=== PATIENT | male | born 1950 | race Caucasian/White ===

== ENCOUNTER 2024-01-12 17:27 | Emergency (ER) | payer MEDICARE, SELFPAY ==
--- NOTE | ~2024-01-12 | XR_ITS ---
EXAMINATION: XR KNEE, RIGHT CLINICAL INFORMATION: Patient COMPARISON: None available. TECHNIQUE: Four views of the right knee. FINDINGS: Mild tricompartmental osteoarthritis. No acute fracture or dislocation. Soft tissue structures within normal limits. No joint effusion. Vascular calcifications. XR/XR knee RT 4V IMPRESSION: Osteoarthritis. No acute fracture or dislocation.
--- NOTE | ~2024-01-12 | XR_ITS ---
EXAMINATION: XR HIP, RIGHT CLINICAL INFORMATION: Pain COMPARISON: None available. TECHNIQUE: Two views of the right hip. 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 No component migration. Soft tissues are normal. XR/XR hip RT w PEL1V IMPRESSION: Normal right hip.
--- NOTE | ~2024-01-12 | CT_ITS ---
EXAMINATION: CT HEAD WITHOUT CONTRAST CLINICAL INFORMATION: Fall COMPARISON: None. TECHNIQUE: Multidetector volumetric imaging of the head was performed without intravenous contrast material. This CT examination was performed using dose optimization techniques as appropriate, variously including the following: *Automated exposure control *Adjustment of mA and/or kV according to patient size (this includes techniques or standardized protocols for targeted exams where dose is matched to indication/reason for exam; i.e. extremities or head) *Use of iterative reconstruction technique Dose: 739 mGy-cm FINDINGS: There is no evidence of acute intracranial hemorrhage or territorial infarction. No abnormal mass-effect or midline shift is seen. [place] to white matter differentiation is well preserved. No extra axial fluid collections. There is commensurate enlargement of the ventricles and extraaxial CSF spaces consistent with mild volume loss. A few foci of hypoattenuation in the subcortical and periventricular white matter are most consistent with chronic microangiopathic changes. Calcific atherosclerosis is present within the cavernous segments of the internal carotid arteries. The soft tissues and osseous structures are normal. Mild mucosal thickening in the left maxillary sinus. Sinuses and mastoid air cells are otherwise clear. Cerumen is present in the right external auditory canal. CT/CT head/brain wo IV con IMPRESSION: No acute intracranial pathology.
--- NOTE | ~2024-01-12 | XR_ITS ---
EXAMINATION: XR CHEST CLINICAL INFORMATION: Hypoxia COMPARISON: None available. TECHNIQUE: Frontal view of the chest was obtained. FINDINGS: No significant abnormality is noted involving the heart, lungs, mediastinum, bony thorax or soft tissues. XR/XR chest 1V IMPRESSION: Unremarkable examination.
--- NOTE | ~2024-01-12 | US_ITS ---
EXAMINATION: US VENOUS ULTRASOUND WITH DOPPLER LOWER EXTREMITY, RIGHT CLINICAL INFORMATION: Pain COMPARISON: None available. TECHNIQUE: Ultrasound of the deep veins is performed from the hip to the calf with compression sonography and color and pulse Doppler assessment. Spectral analysis with color-flow imaging is performed. FINDINGS: There is normal venous compression and respiratory variation and augmented flow. The visualized common femoral vein, superficial femoral vein, profunda femoral vein, popliteal vein, and the trifurcation region shows no evidence of deep venous thrombosis. There is no significant popliteal fossa cyst. If the patient's symptoms persist, followup ultrasound in 5 days 7 days might be of value to exclude proximal propagation from a non-visualized calf vein. US/US venous duplex LE RT IMPRESSION: No DVT demonstrated in the right lower extremity.
[2024-01-12 17:32] VITALS: BP 138/70; PULSE 84; O2SAT 96
[2024-01-12 17:38] VITALS: BP 120/53; PULSE 83; RESP 18; TEMP 36.9; O2SAT 94; BMI 29.7
--- NOTE | 2024-01-12 17:43 | ECG_ITS ---
Test Reason : FALL Blood Pressure : / mmHG Vent. Rate : 083 BPM Atrial Rate : 083 BPM P-R Int : 152 ms QRS Dur : 086 ms QT Int : 390 ms P-R-T Axes : 022 -50 072 degrees QTc Int : 458 ms Artifact in tracing Sinus rhythm with occasional Premature ventricular complexes and Premature atrial complexes Left axis deviation Low voltage QRS Inferior infarct , age undetermined Cannot rule out Anteroseptal infarct , age undetermined Abnormal ECG No previous ECGs available Referred By: Generic ED Physician Electronically Signed By:DONTE CROOKS
[2024-01-12 18:23] VITALS: BP 118/65; PULSE 79; RESP 22; O2SAT 95
[2024-01-12 18:28] LABS: MANUAL DIFF FLAG NO
[2024-01-12 18:30] LABS: Basophils Percent Auto 0.4 % (0-2); Eosinophils Absolute Auto 0.1 X10*3/uL (0.0-0.4); Eosinophils Percent Auto 1.7 % (0-4); Hematocrit 37.5 % (42.0-52.0); Imm Gran Abs Auto 0.02 X10*3/uL (0.00-0.03); Imm Gran Pct Auto 0.4 % (0.0-0.4); Lymphocytes Absolute Auto 0.7 X10*3/uL (1.2-4.9); Lymphocytes Percent Auto 13.2 % (20-40); Mean Corpuscular HGB Conc 34.7 g/dl (31.0-36.0); Mean Corpuscular Hemoglobin 35.3 pg (27.0-33.0); Mean Corpuscular Volume 101.9 fL (80.0-98.0); Mean Platelet Volume 10.1 fL (9.4-12.4); Monocytes Percent Auto 19.8 % (2-11); Neutrophils Absolute Auto 3.3 x10*3/uL (2.0-8.3); Neutrophils Percent Auto 64.5 % (45-73); Platelet Count 159 X10*3/uL (160-400); Red Blood Count 3.68 X10*6/uL (4.60-5.80); Red Cell Distribution Width 13.4 % (11.0-16.0); White Blood Count 5.2 X10*3/uL (4.8-10.8)
[2024-01-12 18:38] LABS: INTERNATIONAL NORM RATIO 0.9 (0.9-1.1); Prothrombin Time 11.5 SEC (11.1-13.3)
[2024-01-12 18:46] LABS: Alanine Aminotransferase 41 U/L (0-40); Albumin Level 3.2 g/dL (3.5-5.0); Alkaline Phosphatase 101 U/L (39-117); Anion Gap 13 (12-20); Aspartate Amino Transferase 56 U/L (5-37); Bilirubin Total 0.5 mg/dL (0.0-1.0); Blood Urea Nitrogen 16 mg/dL (9-16); Calcium 10.4 mg/dL (8.4-10.2); Carbon Dioxide 33 mmol/L (22-29); Chloride 100 mmol/L (96-108); Creatinine Clr Calc Pharmacy 102.2; Estimated Glomerular Filt Rate > 60; Glucose Random 159 mg/dL (60-115); Sodium 143 mmol/L (135-145); Total Protein 6.4 g/dL (6.5-8.0)
[2024-01-12 19:27] LABS: Appearance Urine Cloudy; Color Urine Dark Yellow; Glucose Urine UA Negative (Negative); Leukocyte Esterase Urine Negative (Negative); Nitrite Urine Negative (Negative); Specific Gravity - Urine 1.025 (1.005-1.025); UMIC TRIGGER UACC YES; Urine Blood Large (3+) (Negative); Urine Ketones Trace mg/dL (Negative); Urine Protein Trace mg/dL (Neg-Trace)
[2024-01-12 19:34] LABS: Bacteria Urine None Seen (None Seen); Calcium Oxalate Crystals Urine Present; WBC Urine 0-5 /HPF (0-5)
[2024-01-12] MEDS: Potassium Chloride ER 20 MEQ TAB.ER.PRT 40 MEQ PO (19:48)
--- NOTE | 2024-01-12 20:06 | ED_ITS ---
HPI - General Adult General Chief complaint: Fall Stated complaint: SN[facility], fall, no headstrike, hip/leg pain Time Seen by Provider: 01/12/24 19:08 Source: patient and RN notes reviewed Mode of arrival: EMS Limitations: no limitations History of Present Illness ED Provider: Shaji PAIGE narrative: 73-year-old male presents for evaluation of right leg pain. Patient is presenting from [place] after a fall. He suffered a fall this morning. He states that his right leg has been bothering him which led to his fall today. He reports pain from the knee down. Denies any hip pain He states the pain has been bothering him for about 2 weeks now. He states when he fell he did not hit his head or lose consciousness Patient is denying any chest pain, shortness of breath prior to his fall. Denies any dizziness, headaches He is on aspirin but not anticoagulation Apparently the patient was found to be satting 90% on room air after he fell. Related Data Allergies Allergy/AdvReac Type Severity Reaction Status Date / Time Seasonal Allergies Allergy Dry Eye Verified 01/12/24 17:43 Review of Systems 2 Constitutional: Constitutional: Denies body ache(s), Denies chills, Denies fever(s) and Denies headache(s) Eyes: Eyes: Denies blurry vision ENT: Denies dysphagia, Denies vertigo, Denies dizziness and Denies headache(s) Cardiovascular: Cardiovascular: Denies chest pain and Denies dyspnea Respiratory: Respiratory: Denies cough and Denies dyspnea Gastrointestinal: Gastrointestinal: Denies abdominal pain, Denies dysphagia and Denies vomiting Musculoskeletal: Musculoskeletal: Denies back pain Integumentary/Breasts: Skin/Breast: Denies rash Neurologic: Denies vertigo, Denies dizziness and Denies headache(s) Psychiatric: Psychiatric: Denies anxiety PMFSH Social History Social History Smoked in Last 30 Days: Yes Use of substances other than those prescribed or required for medical reasons: No Advance Directives: No Advance Directives Information Provided: No Do you have a plan to hurt others: No Plan Physical Exam ED Vital Signs: Vital Signs - 24 hr 01/12/24 17:38 01/12/24 18:23 01/12/24 21:46 Temperature 98.5 F 98.6 F Pulse Rate 83 79 81 Respiratory Rate 18 22 H 17 Blood Pressure 120/53 L 118/65 123/56 L Pulse Oximetry 94 95 92 Oxygen Delivery Method Room Air Room Air Room Air BMI result Body Mass Index 29.7 Const General: healthy appearing, comfortable, no acute distress, alert and awake Nutritional Appearance: well nourished Orientation/consciousness: patient oriented x3 HENMT Head: Yes normocephalic and Yes atraumatic Throat: Yes posterior oropharynx normal Eyes Eyelids: Yes eyelids normal Conjunctivae: conjunctivae normal Sclerae: sclerae normal Corneas: corneas normal Pupils: Equal, round and reactive pupils present EOM: EOMs intact bilaterally Neck Neck: Yes full ROM Resp Effort & Inspection: normal respiratory effort, able to speak in complete sentences and not labored Cardio Rate: regular rate Rhythm: regular rhythm GI Inspection: No distended Palpation (GI): Soft to palpation, not firm, nontender, no guarding and not rigid Skin General skin exam: elasticity normal Neuro General: patient oriented x3 Cranial nerves: Yes CN's II-XII intact bilaterally, Yes Equal, round and reactive pupils present and Yes Bilaterally intact EOM present Cognition (Neuro): normal cognition Extrem Other: Moving all extremities well without any obvious deformities. Patient does have some tenderness to the right medial thigh and posterior knee. No obvious deformity. Course Reevaluation(s) Reevaluation #1: Patient's workup is significant for mild tricompartmental osteoarthritis of the right knee. No evidence of traumatic injuries, his chest x-ray showed no focal infiltrates or pleural effusions. The patient has not been hypoxic in the ER. He is stable for discharge back to [place] Time: 23:03 Medications Administered Discontinued Medications Generic Name Dose Route Start Last Admin Trade Name Maxq PRN Reason Stop Dose Admin Potassium Chloride 40 meq 01/12/24 19:23 01/12/24 19:48 Potassium Chloride Er 20 Meq Tab.Er.Prt PO 01/12/24 19:24 40 meq ONCE ONE Administration Medical Decision Making Medical Decision Making [facility] Narrative: 73-year-old male presents for evaluation after a fall. He denies any back pain, has no spinal tenderness on exam. He states he has been having issues with his right leg for 2 weeks now. Plan for x-ray of the right hip and right knee, get an ultrasound to rule out DVT. There are no objective findings on exam. Given the fall we will get a CT scan of the brain. The patient's lungs are clear to auscultation, denies any shortness of breath or chest pain but given the reported hypoxia to 90% on room air a chest x-ray was ordered with one view. The patient is pretty adamant that this was a mechanical fall and there was no loss of consciousness. An EKG was ordered regardless Differential Diagnosis Differential Diagnoses: The differential diagnosis associated with the presentation includes Mechanical fall Syncope DVT Arthritis Leg fracture Contusion Weakness Intracranial hemorrhage Lab Data MDM Lab Attestation statement: I reviewed the patient's lab results. The patient has no leukocytosis. Does have a mild anemia, unclear baseline as we do not have any previous labs. This is a macrocytic anemia. His platelet count is essentially normal at 159 K. there is no significant left shift. Chemistries are significant for a normal sodium, a slight hypokalemia at 3.0. Renal function within normal limits. His glucose is elevated to 159. There is no evidence of DKA as the patient's, Sexually slightly elevated as opposed to decreased. Very mild transaminitis of unclear etiology 01/12/24 18:22 01/12/24 18:22 Labs: Lab Results 01/12/24 01/12/24 Range/Units 18:22 19:17 WBC 5.2 (4.8-10.8) X10*3/uL RBC 3.68 L (4.60-5.80) X10*6/uL Hgb 13.0 L (14.0-18.0) g/dl Hct 37.5 L (42.0-52.0) % MCV 101.9 H (80.0-98.0) fL MCH 35.3 H (27.0-33.0) pg MCHC 34.7 (31.0-36.0) g/dl RDW 13.4 (11.0-16.0) % Plt Count 159 L (160-400) X10*3/uL MPV 10.1 (9.4-12.4) fL Immature Gran % (Auto) 0.4 (0.0-0.4) % Neut % (Auto) 64.5 (45-73) % Lymph % (Auto) 13.2 L (20-40) % Shannon % (Auto) 19.8 H (2-11) % Eos % (Auto) 1.7 (0-4) % Baso % (Auto) 0.4 (0-2) % Lymph # (Auto) 0.7 L (1.2-4.9) X10*3/uL Shannon # (Auto) 1.0 (0.1-1.2) X10*3/uL Eos # (Auto) 0.1 (0.0-0.4) X10*3/uL Baso # (Auto) 0.0 (0.0-0.2) X10*3/uL Abs Immat Gran (auto) 0.02 (0.00-0.03) X10*3/uL Absolute Neuts (auto) 3.3 (2.0-8.3) x10*3/uL Absolute Nucleated RBC 0.000 (0.0-0.012) X10*3/uL Nucleated RBC % (auto) 0.0 (0.0-0.2) /100WBC PT 11.5 (11.1-13.3) SEC INR 0.9 (0.9-1.1) Sodium 143 (135-145) mmol/L Potassium 3.0 L (3.3-5.1) mmol/L Chloride 100 (96-108) mmol/L Carbon Dioxide 33 H (22-29) mmol/L Anion Gap 13 (12-20) BUN 16 (9-16) mg/dL Creatinine 0.74 (0.5-1.4) mg/dL Estim Creat Clear Calc 102.2 Estimated GFR > 60 Random Glucose 159 H (60-115) mg/dL Calcium 10.4 H (8.4-10.2) mg/dL Total Bilirubin 0.5 (0.0-1.0) mg/dL AST 56 H (5-37) U/L ALT 41 H (0-40) U/L Alkaline Phosphatase 101 (39-117) U/L Total Protein 6.4 L (6.5-8.0) g/dL Albumin 3.2 L (3.5-5.0) g/dL Urine Color Dark Yellow Urine Appearance Cloudy Urine pH 6.0 (5.0-9.0) Ur Specific [place] 1.025 (1.005-1.025) Urine Protein Trace (Neg-Trace) mg/dL Urine Glucose (UA) Negative (Negative) mg/dL Urine Ketones Trace (Negative) mg/dL Urine Blood Large (3+) H (Negative) Urine Nitrite Negative (Negative) Ur Leukocyte Esterase Negative (Negative) Urine RBC 6-10 H (0-2) /HPF Urine WBC 0-5 (0-5) /HPF Ur Squamous Epith Cells 3-5 (0-2) /HPF Calcium Oxalate Crystal Present Urine Bacteria None Seen (None Seen) Hyaline Casts 3-5 (0-2) /LPF Independent Interpretation I performed an independent interpretation of an: EKG (Sinus rhythm with a rate of 83 beats minute. There is a PVC noted. No ST segment elevation [place]) Radiology Impression Discussion of test interpretation with radiology: I have reviewed the radiologist's reading. Radiologist Impression: XR/XR knee RT 4V IMPRESSION: Osteoarthritis. No acute fracture or dislocation. XR/XR hip RT w PEL1V IMPRESSION: Normal right hip. US/US venous duplex LE RT IMPRESSION: No DVT demonstrated in the right lower extremity. CT/CT head/brain wo IV con IMPRESSION: No acute intracranial pathology. Discharge Plan Discharge Clinical Impression: Fall, Leg pain, right, Acute hypokalemia Patient Disposition: Xfer [facility] Transfer Details: [facility] Instructions: Fall Prevention for Older Adults (ED), Hypokalemia (ED) Additional Instructions: Your workup in the ER today was reassuring. Your potassium was slightly low and this was repleted with oral supplementation. Follow-up with your primary doctor next week to have repeat labs. Your x-rays showed no evidence of fracture but you do have arthritis of your right knee. Your ultrasound showed no evidence of blood clots. Chest x-ray was clear. Brain CT showed no evidence of traumatic injury You may use Tylenol or ibuprofen as needed for pain Print Language: [place] Citizen
[2024-01-12 21:46] VITALS: BP 123/56; PULSE 81; RESP 17; TEMP 37; O2SAT 92
--- NOTE | 2024-01-12 23:36 | PC.NURSE ---
Nurse to nurse report called to Tristan Humphreys, spoke to SHAYY Hernadez. Patient to be transported to facility by ambulance.
[2024-01-13 01:09] VITALS: BP 113/57; PULSE 78; RESP 20; TEMP 36.6; O2SAT 92
[2024-01-13 02:58] VITALS: BP 105/61; PULSE 71; RESP 16; TEMP 36.7; O2SAT 94
[2024-01-13 03:00] VITALS: BP 105/61; PULSE 71; RESP 16; TEMP 36.7; O2SAT 94
== END 2024-01-13 03:01 ==
PROVIDERS: Emergency Provider Emergency Medicine
DX: M79.604 Pain in right leg (principal); Z91.81 History of falling; E87.6 Hypokalemia; R09.02 Hypoxemia; M17.11 Unilateral primary osteoarthritis, right knee; D50.9 Iron deficiency anemia, unspecified; R74.01 Elevation of levels of liver transaminase levels
CPT/HCPCS: 36415; 70450; 71045; 73502; 73564; 80053; 81001; 85025; 85610; 93005; 93971; 99285

== ENCOUNTER → 2024-01-12 17:43 | Outpatient (BNV) | payer MEDICARE, SELFPAY | PROVIDERS: Emergency Provider Emergency Medicine; Visit Provider Internal Medicine | DX: R94.31 Abnormal electrocardiogram [ECG] [EKG] (principal); I49.3 Ventricular premature depolarization | CPT/HCPCS: 93010 ==